=== PATIENT | male | born 1995 | race Caucasian/White ===

== ENCOUNTER → 2020-11-12 | Outpatient (CLI) | payer OTHER | LOC: EROP 11:57 | DX: U07.1 COVID-19 (principal) | CPT/HCPCS: U0002 ==

== ENCOUNTER → 2021-08-12 | Outpatient (CLI) | payer OTHER | LOC: EROP 12:58 | DX: Z53.9 Procedure and treatment not carried out, unspecified reason (principal) | CPT/HCPCS: 96372; J1100 ==

== ENCOUNTER 2021-11-27 22:04 | Emergency (ER) | payer OTHER ==
[2021-11-27 22:22] LABS: HEMOGLOBIN 16.3 gm/dl (14.0-17.5); RED BLOOD COUNT 5.5 M/UL (4.20-5.50); WHITE BLOOD COUNT 11.8 K/UL (4.5-11.0)
[2021-11-27 22:44] LABS: BUN/CREATININE RATIO 17 (0-10)
[2021-11-27] MEDS ORDERED: ZOFRAN ODT 4 MG4 MG PO (23:32)
[2021-11-27] MEDS ORDERED: PHENERGAN 25 MG25 M1 PO (23:32)
== END 2021-11-28 00:10 | disposition home or self-care (01) ==
LOC: ER1 22:04
PROVIDERS: Family Medicine
DX: R11.2 Nausea with vomiting, unspecified (principal); R55 Syncope and collapse; R42 Dizziness and giddiness; Z88.0 Allergy status to penicillin; Z20.822 Contact with and (suspected) exposure to COVID-19
CPT/HCPCS: 0240U; 71045; 80053; 82550; 82553; 84484; 85025; 93005; 96374; 96375; 99284; J2405; J2550